=== PATIENT | male | born 1980 | race Hispanic/Latino ===

== ENCOUNTER 2019-02-24 11:04 | Emergency (ER) | payer BC ==
[2019-02-24] MEDS ORDERED: KETOROLAC TROMETHAMINE 30MG/ML ONE (11:16)
[2019-02-24 11:31] LABS: BASOPHILS % (AUTO) 1.3 % (0.0-5.0); EOSINOPHILS % (AUTO) 4.8 % (0.0-8.0); HEMATOCRIT 45.7 % (42-54); LYMPHOCYTES % (AUTO) 41.8 % (21.0-51.0); MEAN CORPUSCULAR HEMOGLOBIN 30.6 pg (27.0-33.0); MEAN CORPUSCULAR HGB CONC 34.1 g/dL (32.0-36.0); MEAN CORPUSCULAR VOLUME 89.8 fL (79-99); MONOCYTES % (AUTO) 6.1 % (3.0-13.0); NUCLEATED RED BLOOD CELLS 0.1 % (0.0-0.19); PLATELET COUNT (AUTO) 119 K/uL (130-400); RED BLOOD CELL COUNT(AUTO) 5.09 MIL/uL (4.50-6.20); RED CELL DISTRIBUTION WIDTH 13.1 % (11.0-15.5); WHITE BLOOD COUNT (AUTO) 4.3 K/uL (4.8-10.8)
[2019-02-24 11:32] LABS: APPEARANCE,URINE Clear (CLEAR); BILIRUBIN,URINE Negative (NEGATIVE); COLOR,URINE Yellow (YELLOW); GLUCOSE, URINE (UA) Negative (NEGATIVE); KETONES,URINE Negative (NEGATIVE); LEUKOCYTE ESTERASE ,URINE Negative (NEGATIVE); NITRATE,URINE Negative (NEGATIVE); OCCULT BLOOD,URINE Moderate (NEGATIVE); PH,URINE 8.5 (5.0-8.0); PROTEIN,URINE Negative (NEGATIVE)
[2019-02-24 11:37] LABS: CREATININE 1.2 mg/dL (0.5-1.5); POTASSIUM 3.5 mmol/L (3.5-5.1)
[2019-02-24 11:43] LABS: ALBUMIN 4.3 g/dL (3.5-5.0); BILIRUBIN,TOTAL 0.5 mg/dL (0.2-1.0); TOTAL PROTEIN, SERUM 7.8 g/dL (6.0-8.3)
[2019-02-24 11:47] LABS: BACTERIA,URINE Rare /HPF (None Seen); MUCUS,URINE Rare LPF (None Seen); RBC,URINE 26-50 /HPF (0-1); SQUAMOUS EPITHELIAL CELL,UR Rare /HPF (0-2); WBC,URINE 0-1 /HPF (0-1)
[2019-02-24] MEDS ORDERED: MORPHINE SULFATE 2 MG/ML 1ML SYG ONE (12:56)
== END 2019-02-24 13:21 | disposition home or self-care (01) ==
LOC: EDH 11:04
DX: N20.1 Calculus of ureter (principal); N13.30 Unspecified hydronephrosis; N23 Unspecified renal colic
CPT/HCPCS: 36415; 74176; 80053; 81001; 85025; 96374; 96375; 99285; J1885

== ENCOUNTER 2025-03-21 11:46 | Emergency (ER) | payer BC ==
[~2025-03-21] VITALS: Ht 182.9 cm; Wt 81.6 kg
[2025-03-21 11:51] VITALS: BP 115/73; PULSE 67; RESP 18; TEMP 97.7
[2025-03-21] MEDS ORDERED: ondanSETRON 4MG INJ IVP STA (12:03)
[2025-03-21] MEDS ORDERED: morPHINE 2 MG SYG IVP STA (12:03)
[2025-03-21] MEDS ORDERED: 0.9%NACL 1000ML 1,000 ML IV STA (12:03)
[2025-03-21] MEDS ORDERED: IOHEXOL-350 75 ML VIAL IV ONE (12:11)
--- NOTE | 2025-03-21 12:16 | NUR ---
PATIENT IN ER LOBBY, PENDING GFR RESULTS, IV SITE, & CONSENT FOR CT EXAM.
[2025-03-21 12:33] LABS: BASOPHILS # (AUTO) 0.03 K/uL (0.00-0.20); BASOPHILS % (AUTO) 0.4 % (0.0-5.0); EOSINOPHILS # (AUTO) 0.05 K/uL (0.00-0.70); EOSINOPHILS % (AUTO) 0.7 % (0.0-8.0); IMMATURE GRANULOCYTE ABSOLUTE 0.02 K/uL (0-1); LYMPHOCYTES # (AUTO) 0.6 K/uL (1.0-4.8); LYMPHOCYTES % (AUTO) 9.3 % (21.0-51.0); MEAN CORPUSCULAR HEMOGLOBIN 30.6 pg (27.0-33.0); MEAN CORPUSCULAR HGB CONC 34.2 g/dL (32.0-36.0); MEAN CORPUSCULAR VOLUME 89.3 fL (79-99); MONOCYTES # (AUTO) 0.3 K/uL (0.1-1.0); MONOCYTES % (AUTO) 4.5 % (3.0-13.0); NEUTROPHILS # (AUTO) 5.8 K/uL (1.8-7.7); NEUTROPHILS % (AUTO) 84.8 % (40.0-77.0); PLATELET COUNT (AUTO) 141 K/uL (130-400); RED BLOOD CELL COUNT(AUTO) 5.04 MIL/uL (4.50-6.20); RED CELL DISTRIBUTION WIDTH 12.3 % (11.0-15.5); WHITE BLOOD COUNT (AUTO) 6.9 K/uL (4.8-10.8)
[2025-03-21 12:51] LABS: ALBUMIN 4.4 g/dL (3.5-5.0); BILIRUBIN,DIRECT 0.2 mg/dL (0.0-0.3); BILIRUBIN,TOTAL 0.7 mg/dL (0.2-1.0); POTASSIUM 3.8 mmol/L (3.5-5.1); TOTAL PROTEIN, SERUM 7.7 g/dL (6.0-8.3)
--- NOTE | 2025-03-21 13:25 | ERN ---
ED Note History of Present Illness Stated Complaint: SEVERE ABD PAIN Chief Complaint: Abdominal Pain Time Seen by MD: 11:50 Time Seen by Midlevel: 11:58 Dictation: 44-year-old male with no past medical history coming in complaining of severe left upper quadrant pain started last night at 9:00 p.m.. Denies having any nausea, vomiting or diarrhea. Patient states last BM was this morning states he feels constipated. Patient states he has a history of constipation. Also states he has had issues with the his GI on and off for the last couple of months. States she has seen GI doctors and oncologist due to his low platelet count in his nobody can Tylenol two going on. Patient states he is currently taking ivermectin because his PCP thinks it is parasites. Patient is requesting lab work and CT scans. Allergies: Coded Allergies: No Known Drug Allergies (Unverified Allergy, Unknown, 03/21/25) Past Medical History Past Medical History: No Pertinent History Surgical History: None Review of System Dictation Constitutional: Negative for fever,chills, and weight loss Eyes: Negative for injury, pain,redness, and discharge ENT: Negative for injury,pain or swelling Cardiovascular: Negative for chest pain, palpitations, and edema Respiratory: Negative for shortness of breath, cough, and wheezing, Abdomen/GI: Complaining of left upper quadrant pain, no nausea, no vomiting, no diarrhea, positive for constipation Back: Negative for injury and pain : Negative for injury, bleeding and discharge MS/Extremity: Negative for injury and deformity Skin: Negative for rash, and discoloration Neuro: Negative for headache, weakness, numbness, tingling, and seizure Psych: Negative for suicide ideation, homicidal ideation, and hallucinations Review of Systems: was completed Initial Vital Sign VS Vital Signs Date Time Temp Pulse Resp B/P (MAP) Pulse Ox O2 Delivery O2 Flow Rate FiO2 03/21/25 11:51 97.7 67 18 115/73 100 0 Physical Exam Dictation General: awake, alert, NAD Head/Face: Normocephalic, atraumatic Eyes: PERRL, EOMI, vision at baseline ENT: oral cavity clear, TMs clear, no signs of infection Neck: Trachea midline, supple, no nuchal rigidity Cardiovascular: RRR, normal S1/S2, No MRGs, no JVD Respiratory: CTAB, no respiratory distress, No rales or wheezes Abdomen: Soft, non-tender, non-distended, normal bowel sounds, no guarding or rebound. Skin: Warm, dry, normal turgor, no rash MS/Extremity: Pulses equal, no cyanosis, neurovascular intact, FROM Neuro: COAx4, GCS 15, strength 5/5, CN 2-12 intact, normal cerebellar exam, normal gait, Psych: Normal behavior, mood, and affect normal Results (Laboratory/Radiology) Laboratory/Radiology Laboratory Tests Test 03/21/25 12:26 White Blood Count 6.9 K/uL (4.8-10.8) Red Blood Count 5.04 MIL/uL (4.50-6.20) Hemoglobin 15.4 g/dL (14.0-18.0) Hematocrit 45.0 % (42-54) Mean Corpuscular Volume 89.3 fL (79-99) Mean Corpuscular Hemoglobin 30.6 pg (27.0-33.0) Mean Corpuscular Hemoglobin Concent 34.2 g/dL (32.0-36.0) Red Cell Distribution Width 12.3 % (11.0-15.5) Platelet Count 141 K/uL (130-400) Mean Platelet Volume 11.6 fL (7.5-10.5) H Immature Granulocyte % (Auto) 0.3 % (0-1) Neutrophils (%) (Auto) 84.8 % (40.0-77.0) H Lymphocytes (%) (Auto) 9.3 % (21.0-51.0) L Monocytes (%) (Auto) 4.5 % (3.0-13.0) Eosinophils (%) (Auto) 0.7 % (0.0-8.0) Basophils (%) (Auto) 0.4 % (0.0-5.0) Neutrophils # (Auto) 5.8 K/uL (1.8-7.7) Lymphocytes # (Auto) 0.6 K/uL (1.0-4.8) L Monocytes # (Auto) 0.3 K/uL (0.1-1.0) Eosinophils # (Auto) 0.05 K/uL (0.00-0.70) Basophils # (Auto) 0.03 K/uL (0.00-0.20) Absolute Immature Granulocyte (auto 0.02 K/uL (0-1) Nucleated Red Blood Cells 0.0 % (0.0-0.19) White Cell Morphology Comment See comments Sodium Level 136 mmol/L (136-145) Potassium Level 3.8 mmol/L (3.5-5.1) Chloride Level 102 mmol/L (101-111) Carbon Dioxide Level 27 mmol/L (21-32) Blood Urea Nitrogen 21 mg/dL (7-18) H Creatinine 1.0 mg/dL (0.5-1.3) Glomerular Filtration Rate Calc 94 mL/min (>90) Random Glucose 108 mg/dL (70-105) H Total Calcium 9.2 mg/dL (8.5-10.1) Total Bilirubin 0.7 mg/dL (0.2-1.0) Direct Bilirubin 0.2 mg/dL (0.0-0.3) Aspartate Amino Transf (AST/SGOT) 23 U/L (10-37) Alanine Aminotransferase (ALT/SGPT) 46 U/L (12-78) Alkaline Phosphatase 80 U/L (50-136) Total Protein 7.7 g/dL (6.0-8.3) Albumin 4.4 g/dL (3.5-5.0) Lipase 44 U/L (16-77) Labs Reviewed?: Yes ED Course ED Course Orders Procedure Category Date Status Time Cbc With Differential LAB 03/21/25 Complete 12:02 Basic Metabolic Panel LAB 03/21/25 Complete 12:02 Lipase LAB 03/21/25 Complete 12:02 Hepatic Function Panel LAB 03/21/25 Complete 12:02 Urinalysis Profile LAB 03/21/25 Logged 12:02 Ct Abdomen/Pelvis CT 03/21/25 Logged W/Contrast 12:02 0.9%Nacl 1000ml (Ns PHA 03/21/25 Complete 1000ml) 12:03 Ondansetron 4mg Inj PHA 03/21/25 Complete (Zofran 4mg Inj) 12:03 Morphine 2mg Syg PHA 03/21/25 Complete (Morphine 2mg Syg) 12:03 Iohexol (Omnipaque) PHA 03/21/25 Complete 12:11 Current Medications Medications (Trade) Dose Ordered Sig/Jane Route PRN Reason Start Time Stop Time Status Last Admin Dose Admin Iohexol (Omnipaque) 75 ml STK-MED ONCE IV 5/4/25 12:11 03/21/25 12:17 DC Morphine Sulfate (morPHINE 2MG SYG) 2 mg ONCE STAT IVP 03/21/25 12:03 03/21/25 12:07 DC Ondansetron HCl (zoFRAN 4MG INJ) 4 mg ONCE STAT IVP 03/21/25 12:03 03/21/25 12:07 DC Sodium Chloride 1,000 ml @ 1,000 mls/hr Q1H STAT IV 03/21/25 12:03 03/21/25 13:02 DC Vital Signs Date Time Temp Pulse Resp B/P (MAP) Pulse Ox O2 Delivery O2 Flow Rate FiO2 03/21/25 11:51 97.7 67 18 115/73 100 0 Medical Decision Making MDM MDM: 44-year-old male with no past medical history coming in complaining of severe left upper quadrant pain started last night at 9:00 p.m.. Denies having any nausea, vomiting or diarrhea. Patient states last BM was this morning states he feels constipated. Patient states he has a history of constipation. Also states he has had issues with the his GI on and off for the last couple of months. States she has seen GI doctors and oncologist due to his low platelet count in his nobody can Tylenol two going on. Patient states he is currently taking ivermectin because his PCP thinks it is parasites. Patient is requesting lab work and CT scans. At 1:18 p.m. I was notified that the patient had left, eloped the ER. Differential diagnosis: Pancreatitis, PUD, constipation, Rationale: Tests considered and ordered secondary to shared decision making include: Previous outside records reviewed: Old ER visits. Risk of complication and/or morbidity or mortality of patient management: None Medications-Per medication reconciliation Need for hospitalization: Patient does not meet criteria for hospitalization. Need for emergency major/minor surgery: No There are no social concerns with this patient. Prescription drug management Prescriptions will include symptomatic care Patient's prior external medical records from other ER visits were reviewed by me as indicated. Prior testing and results from previous visits were reviewed. Prior tests were taken into account with medical decision making and resource utilization, independent historian/historians were used to obtain complete medical history. I independently interpreted the test that were performed, results were reviewed by me and considered findings on radiology if ordered. Medical management and examination interpretation discussions were had by me with other qualified healthcare professionals as indicated for the patient's care. DX & DISP Disposition: Discharge Departure Impression: Primary Impression: Eloped from emergency department Condition: Stable Referrals: JUVENTINO GUNTER (PCP) Time of Disposition: 13:25 I have reviewed the case, and I agree with, Diagnosis and Plan RUSTY GRAVES NP March 21, 2025 13:25
== END 2025-03-21 13:27 | disposition left against medical advice (07) ==
LOC: EDH 11:46
DX: R10.12 Left upper quadrant pain (principal)
CPT/HCPCS: 36415; 80048; 80076; 83690; 85025; 99283; Q9967